=== PATIENT | female | born 1955 | race Caucasian/White ===

== ENCOUNTER 2020-08-01 06:15 | Day surgery (SDC) | payer BC ==
[2020-07-29 10:27] VITALS: BMI 22.4
--- OUTSIDE RECORDS SUMMARY | 2020-08-01 06:18 | XMS ---
:1955 Author Organization [facility] Support Name Relationship Address Phone [facility] Unavailable [address] [phone] [place] [address] CHARLOTTE GIBBS DAUGHTER [address] [place] [address] Re-disclosure Warning The records that you are about to access may contain information from federally- assisted alcohol or drug abuse programs. If such information is present, then the following federally mandated warning applies: This information has been disclosed to you from records protected by federal confidentiality rules (42 CFR part 2). The federal rules prohibit you from making any further disclosure of this information unless further disclosure is expressly permitted by the written consent of the person to whom it pertains or as otherwise permitted by 42 CFR part 2. A general authorization for the release of medical or other information is NOT sufficient for this purpose. The Federal rules restrict any use of the information to criminally investigate or prosecute any alcohol or drug abuse patient.The records that you are about to access may contain highly sensitive health information, the redisclosure of which is protected by Article 27-F of the [facility] Public Health law. If you continue you may haveaccess to information: Regarding HIV / AIDS; Provided by facilities licensed or operated by the [facility] Office of Mental Health; or Provided by the [facility] Office for People With Developmental Disabilities. If such information is present, then the following [facility] mandated warning applies: This information has been disclosed to you from confidential records which are protected by state law. State law prohibits you from making any further disclosure of this information without the specific written consent of the person to whom it pertains, or as otherwise permitted by law. Any unauthorized further disclosure in violation of state law may result in a fine or group home sentence or both. A general authorization for the release of medical or other information is NOT sufficient authorization for further disclosure. Insurance Providers Payer name Policy type / Policy ID Covered Covered green party's Policy Plan Coverage type green party ID relationship to [employer] Information cunningham POS [id number] SP [id number]
[2020-08-01] MEDS ORDERED: LIDOCAINE HCL 1%, 10 MG/ML (20ML VIAL) ONE (07:04)
[2020-08-01] MEDS ORDERED: BUPIVACAINE HCL/PF 0.5% (5MG/ML) 10 ML VIAL ONE (07:04)
[2020-08-01] MEDS ORDERED: ROPIVACAINE HCL 0.5% 30ML VIAL ONE (07:22)
[2020-08-01] MEDS ORDERED: MIDAZOLAM HCL 2 MG/2 ML SINGLE DOSE VIAL ONE (07:22)
[2020-08-01] MEDS ORDERED: DEXAMETHASONE SOD PHOSPHATE/PF 10 MG/ML SDV ONE (07:31)
--- NOTE | 2020-08-01 07:39 | HP ---
Satellite [facility] - Chief Complaint Chief Complaint: left wrist fx - Past Medical History Allergies/Adverse Reactions: Allergies Allergy/AdvReac Type Severity Reaction Status Date / Time oxycodone AdvReac Severe Vomiting Verified 07/29/20 10:22 - Current Medications Current Medications: Home Medications Medication Instructions Recorded Aspirin [Adult Aspirin Regimen] 81 mg PO ASDIR 07/29/20 Atorvastatin Ca [Lipitor] 10 mg PO HS 08/01/20 Hydrocodone/Acetaminophen 1 each PO Q6H PRN #20 tablet MDD 4 08/01/20 [Hydrocodone-Acetamin 5-325 mg] Satellite Physical Exam - Physical Examination Vital Signs: Vital Signs Period Temp Pulse Resp BP Sys/Cedeño Pulse Ox Last 24 Hr 98.2 F 84 18 117/70 98 General Appearance: Well Nourished, Well Developed, Alert & Oriented x3 ENT: Clear Lung: Normal air movement Extremities: Other (left wrist- + swelling, + ttp, decr rom, nvi) Neurological: Intact, Alert, Oriented Satellite Impression/Plan - Impression/Plan Impression: left displaced distal radius fx Operative Procedure: left distal radius ORIF Date to be Performed: 08/01/20
[2020-08-01] MEDS ORDERED: ceFAZolin SODIUM 1 GM VIAL ONE (08:09)
[2020-08-01] MEDS ORDERED: ONDANSETRON 4 MG/2 ML VIAL ONE (08:09)
[2020-08-01] MEDS ORDERED: DEXAMETHASONE SOD PHOSPHATE 4 MG/1 ML VIAL ONE (08:09)
[2020-08-01] MEDS ORDERED: SUCCINYLCHOLINE CHLORIDE 200 MG/10 ML SYRINGE ONE (08:11)
--- NOTE | 2020-08-01 09:30 | OP ---
Operative Note - Note: Operative Date: 08/01/20 Pre-Operative Diagnosis: left distal radius fracture, comminuted, displaced, intra articular, angulated Operation: left distal radius ORIF Implants: [employer] Low Profile DVR Plate, 3 x 3.5mm screws (10,10,12mm), 5 x distal locking screws (14-22mm) Surgeon: Adolfo La Anesthesiologist/ENVIRONMENTAL MARKETER: Raine Denise Anesthesia: Regional, MAC Estimated Blood Loss (mls): 0 Drains, Volume Out (mls): 0 Blood Volume Replaced (mls): 0 Fluid Volume Replaced (mls): 700 Operative Report Dictated: Yes
--- NOTE | 2020-08-01 10:02 | SPEC ---
DATE OF OPERATION: 08/01/2020 PREOPERATIVE DIAGNOSIS: Comminuted intraarticular angulated displaced left distal radius fracture. POSTOPERATIVE DIAGNOSIS: Comminuted intraarticular angulated displaced left distal radius fracture. PROCEDURE: Left distal radius open reduction internal fixation. SURGEON: Adolfo Monterroso MD ENROLLMENT CONSULTANT: None. ANESTHESIOLOGIST: Raine Denise MD ANESTHESIA: Left supraclavicular block. DRAINS: None. COMPLICATIONS: None. SPECIMEN: None. BLOOD LOSS: None. BLOOD GIVEN: None. FLUID REPLACEMENT: Plasma-Lyte 700 mL. IMPLANT: [employer] low profile 3-hole DVR plate with three 3.5-mm screws and 5 partially threaded distal locking screws. INDICATION: This patient is a 64-year-old female with preoperative diagnosis of a comminuted intraarticular displaced and angulated left distal radius fracture. After understanding the potential risks, complications, alternatives and benefits of surgery versus nonsurgical treatment the patient elected to undergo this procedure. PROCEDURE IN DETAIL: Patient was brought into the operating room. Peripheral IV placed. IV sedation given. She was given 2 g of IV Ancef. A left supraclavicular block was performed. MAC anesthesia was induced. The entire case was done under 3.8 loupe magnification. Typical FCR approach was marked out with a marking pen and incision made with No. 15 scalpel blade. Subcutaneous hemostasis was achieved with a bipolar cautery. The radial artery was retracted gently in a radial direction and ulnar to this, using a fresh No. 15 scalpel blade, the muscular fascia was incised. Blunt dissection was done with my index finger down to the volar aspect of the distal radius. Weitlaner retractors were placed deep into the wound for visualization. A periosteal elevator was used to do subperiosteal dissection exposing the fracture site. There was a main transverse component to the distal radius fracture but in addition there were several pieces, some extending towards the radial carpal joint and some towards the distal radial ulnar joint. The fracture site was copiously irrigated and washed out. All debris including hematoma and muscle were removed. A provisional reduction was performed and seemed to come together quite nicely. There was a small metaphyseal defect. X-rays were taken in AP and lateral planes documenting excellent position of the fracture fragments, restoring radial height inclination and volar tilt. Next a standard [employer] left volar 3-hole low profile titanium DVR plate was placed on the volar aspect of the distal radius. Two K-wires were placed and x-rays were taken documenting excellent position, length and subchondral position. Next the central 3.5 mm screws were placed in a standard fashion, 10, 10 and 12 mm in length and the second-most ulnar proximal row screw was placed. This was a 24 mm partially threaded locking screw. X-rays again were taken documenting excellent position and support of the subchondral bone. The rest of the screws were then put in, first 2 additional purple proximal screws of 12 and 14 mm in length for 6 cortices proximally and then the silver drill bit was used to put in the remaining 5 screws of both the proximal and distal row from 14 mm to 22 mm of length, all partially threaded locking screws. All of the guides were removed and passed off the field. Final x-rays were taken in A-P and lateral planes. I was quite happy with the fracture reduction position, position of the radial carpal joint, distal radial ulnar joint length, height and tilt. ADOLFO MONTERROSO M.D. [id number]
[2020-08-01 10:57] VITALS: TEMP 97.9
[2020-08-01 11:04] VITALS: BP 130/74; PULSE 73
[2020-08-01] MEDS ORDERED: ONDANSETRON 4 MG/2 ML VIAL IVPUSH PRN (11:53)
[2020-08-01] MEDS ORDERED: oxyCODONE HCL 5 MG TABLET PO PRN (11:53)
[2020-08-01] MEDS ORDERED: LACTATED RINGERS SOLUTION 1,000 ML IV SCH (12:00)
--- NOTE | 2020-08-01 17:10 | EKG ---
Test Reason : Blood Pressure : / mmHG Vent. Rate : 068 BPM Atrial Rate : 068 BPM P-R Int : 150 ms QRS Dur : 086 ms QT Int : 390 ms P-R-T Axes : 060 066 087 degrees QTc Int : 414 ms NORMAL SINUS RHYTHM POSSIBLE LEFT ATRIAL ENLARGEMENT SEPTAL INFARCT , AGE UNDETERMINED ABNORMAL ECG NO PREVIOUS ECGS AVAILABLE Confirmed by PINO TRAVIS MD ([id number]) on 08/01/2020 5:09:59 PM Referred By: Adolfo La Confirmed By:PINO TRAVIS MD
== END 2020-08-01 10:45 | disposition home or self-care (01) ==
LOC: FASU 06:15
PROVIDERS: ATTEND Orthopaedic Surgery
PROC: 0PSJ04Z Reposition Left Radius with Internal Fixation Device, Open Approach (ICD-10-PCS; principal; 2020-08-01 07:58)
DX: S52.572A Other intraarticular fracture of lower end of left radius, initial encounter for closed fracture (principal); X58.XXXA Exposure to other specified factors, initial encounter; Y93.9 Activity, unspecified; Y92.9 Unspecified place or not applicable
CPT/HCPCS: 73110-TC-LT-FY; 73130-TC-LT-FY; 93005